=== PATIENT | male | born 1965 | race Caucasian/White ===

== ENCOUNTER 2023-09-03 21:22 | Emergency (ER) | payer MEDICAID ==
[~2023-09-03] VITALS: Ht 182.9 cm; Wt 63.0 kg
[2023-09-03 21:25] VITALS: BP 140/91; PULSE 103; RESP 16; O2SAT 97
[2023-09-03] MEDS ORDERED: ketorolac trometh. 30mg/ml inj. IM ONE (23:35)
[2023-09-03] MEDS ORDERED: LIDO20SO16 PO (23:45)
[2023-09-03] MEDS: LIDOcaine 2% Viscous 15ml cup MM PRN (23:53)
[2023-09-03] MEDS: HYDROcodone/acetaminophen 5mg/325mg tablet PO ONE (23:53)
[2023-09-03] MEDS: ketorolac tromethamine 15mg/ml inj. IM ONE (23:54)
[2023-09-04 00:04] VITALS: TEMP 98
== END 2023-09-04 00:05 | disposition home or self-care (01) ==
LOC: ER 21:23
DX: M27.2 Inflammatory conditions of jaws (principal); Z88.0 Allergy status to penicillin; Z79.899 Other long term (current) drug therapy
CPT/HCPCS: 96372; 99283; J1885

== ENCOUNTER 2024-12-15 14:12 | Emergency (ER) | payer MEDICAID ==
[~2024-12-15] VITALS: Ht 182.9 cm; Wt 48.7 kg
[~2024-12-15 14:12] MED LIST: LIDO20SO16 PO
--- NOTE | 2024-12-15 14:37 | Physician Documentation ---
History of Present Illness ~ Chief Complaint: ETOH Stated Complaint: ETOH Time Seen by MD: 15:49 OK to notify your PCP?: Yes Source: patient Mode of Arrival: POV Exam Limitations: no limitations HPI 58-year-old male presents for alcoholism. He reports that he was at [facility] today and they told him he should come back on Sunday. He states he went through their detox program did not finish. It is unclear what he is requesting from us. He reports he had 3 beers before coming in today. HE IS REQUESTING MEDICAL CLEARANCE SO HE CAN GO BACK TO [facility]. Tetanus within 5 years?: No Medication Reconciliation Allergies: Coded Allergies: Penicillins (Verified Allergy, Severe, 09/03/23) Scheduled Lidocaine Hcl (Xylocaine Viscous), 5 ML PO Q2H PRN SORE THROAT Scheduled PRN Chlordiazepoxide Hcl (Librium), 1 CAP PO TID PRN for alcohol withdrawal Review of Systems All Other Systems at this time: Reviewed and Negative Physical Exam Vital Signs: RN Vital Signs have been reviewed: Yes, Temperature: 97.4, Source: Temporal, Heart Rate: 94, Respiratory Rate: 15, BP: 116/75, Pulse Oximetry: 94, Weight: 48.700 Pulse Oximetry Reflects: adequate oxygenation Physical Exam General: Alert, no distress. HEENT: No injection, moist mucous membranes. Neck: Full range of motion. Respiratory: No respiratory distress, equal chest rise and fall. Chest: No accessory muscle use. Cardiovascular: Regular rate and rhythm. Gastrointestinal: Nondistended. Extremities: Normal range of motion, no deformity. Neurologic: Oriented x4. Psychiatric: Normal mood and affect. Skin: Normal color, warm and dry. Progress Results/Orders Results/Orders Completed Orders - CHASE BUSTILLOS NP Urinalysis, Cult If Indicated (12/15/24 15:57) Cbc/Diff (12/15/24 15:57) BMP (12/15/24 15:57) Lipase (12/15/24 15:57) CMP (12/15/24 15:57) Vital Signs 12/15/24 14:31 Temp 97.4 Pulse 94 Resp 15 B/P (MAP) 116/75 Pulse Ox 94 Laboratory Tests Test 12/15/24 16:17 12/15/24 16:39 White Blood Count 5.1 Red Blood Count 4.36 L Hemoglobin 14.9 Hematocrit 43.6 Mean Corpuscular Volume 100.0 H Mean Corpuscular Hemoglobin 34.1 H Mean Corpuscular Hemoglobin Concent 34.1 Red Cell Distribution Width 14.8 H Platelet Count 169 Mean Platelet Volume 7.0 L Neutrophils (%) (Auto) 47.4 Lymphocytes (%) (Auto) 39.5 Monocytes (%) (Auto) 11.1 Eosinophils (%) (Auto) 1.1 Basophils (%) (Auto) 0.9 Neutrophils # (Auto) 2.4 Lymphocytes # (Auto) 2.0 Monocytes # (Auto) 0.6 Eosinophils # (Auto) 0.1 Basophils # (Auto) 0.0 CBC Comment Sodium Level 141 Potassium Level 3.8 Chloride Level 102 Carbon Dioxide Level 26.7 Anion Gap 12 Blood Urea Nitrogen 4 L Creatinine 0.60 Estimated GFR/1.73 m2 > 90 BUN/Creatinine Ratio 6.7 L Glucose Level 87 Calcium Level 7.7 L Total Bilirubin 0.2 Aspartate Amino Transf (AST/SGOT) 48 H Alanine Aminotransferase (ALT/SGPT) 51 Alkaline Phosphatase 61 Total Protein 7.0 Albumin 3.7 Globulin 3.3 Albumin/Globulin Ratio 1.1 Lipase 82 H Chemistry Comments Urine Specimen Description Urinal Urine Color Yellow Urine Clarity Clear Urine pH 6.0 Urine Specific Avant <=1.005 Urine Protein Negative Urine Glucose (UA) Negative Urine Ketones Negative Urine Occult Blood Negative Urine Nitrite Negative Urine Bilirubin Negative Urine Urobilinogen 0.2 Urine Leukocyte Esterase Negative Urine Culture Indicated Not ind Volume Urine Centrifuged 10 ml Urine Comment Medical Decision Making Findings Since laboratory values were overall unremarkable. I am going to medically clear him and discharge him with the Librium to help with his alcohol recovery Departure Disposition: 01 HOME / SELF CARE / HOMELESS Impression: Primary Impression: Alcoholic intoxication Additional Impression: Alcohol withdrawal syndrome Condition: Stable Discharge Instructions: Alcohol Intoxication Additional Instructions: The patient is medically cleared for alcohol recovery at [place] Referrals: NO PRIMARY CARE PROVIDER (PCP) Prescriptions Chlordiazepoxide Hcl (Librium) 25 Mg Capsule 1 CAP PO TID PRN for alcohol withdrawal for 4 Days, #4 CAP 0 Refills Prov: CHASE BUSTILLOS WORD PROCESSOR OPERATOR 12/15/24 Additional Comment Medical Screen Exam This patient recieved a medical screening examination. After reviewing the individual's medical complaints with presenting symptoms and performing an appropriate physical examination, it was determined that no immediate life- threatening emergency medical condition is present. This individual is also not a women having contractions. Signature Scribe Signature: T Attestation: Scribed for Chase Bustillos Np by Chase John NP . 12/15/24 16:45 SOREN MARTINEZP Dec 15, 2024 14:37 CHASE BUSTILLOS NP Dec 15, 2024 16:46
[2024-12-15 16:51] LABS: BASOPHILS % (AUTO) 0.9 % (0-1); EOSINOPHILS # (AUTO) 0.1 X10'3 (0-0.9); EOSINOPHILS % (AUTO) 1.1 % (0-6); HEMATOCRIT 43.6 % (42.0-52.0); HEMOGLOBIN 14.9 g/dl (14.0-17.9); LYMPHOCYTES % (AUTO) 39.5 % (21-51); MEAN CORPUSCULAR HEMOGLOBIN 34.1 PG (27.0-31.0); MEAN CORPUSCULAR HGB CONC 34.1 g/dL (33.0-36.5); MONOCYTES # (AUTO) 0.6 X10'3 (0-0.9); MONOCYTES % (AUTO) 11.1 % (2-12); NEUTROPHILS # (AUTO) 2.4 X10'3 (1.8-7.7); NEUTROPHILS % (AUTO) 47.4 % (42-75); PLATELET COUNT 169 X10'3 (140-440); RED BLOOD COUNT 4.36 X10'6 (4.70-6.10); RED CELL DISTRIBUTION WIDTH 14.8 % (11.5-14.5); WHITE BLOOD COUNT 5.1 X10'3 (4.5-11.0)
[2024-12-15 16:57] LABS: BILIRUBIN,URINE NEGATIVE (Neg); CLARITY,URINE CLEAR (Clear); COLOR,URINE YELLOW (Yellow); GLUCOSE, URINE NEGATIVE (Neg); KETONES,URINE NEGATIVE (Neg); LEUKOCYTE ESTERASE ,URINE NEGATIVE (Neg); NITRITES, URINE NEGATIVE (Neg); OCCULT BLOOD,URINE NEGATIVE (Neg); PROTEIN,URINE NEGATIVE (Neg); UROBILINOGEN,URINE 0.2 E.U/dL (0.2-1.0)
[2024-12-15 17:02] LABS: UA COLLECTION TYPE URINAL
[2024-12-15 17:10] LABS: ALANINE AMINOTRANSFERASE 51 U/L (12-78); ALBUMIN 3.7 G/DL (3.4-5.0); ALBUMIN/GLOBULIN RATIO 1.1 (1.1-1.5); ALKALINE PHOSPHATASE 61 IU/L (46-116); ANION GAP 12 (8-16); ASPARTATE AMINO TRANSFERASE 48 U/L (10-37); BILIRUBIN,TOTAL 0.2 MG/DL (0.1-1.0); BLOOD UREA NITROGEN 4 MG/DL (7-18); BUN/CREATININE RATIO 6.7 (10.0-20.0); CALCIUM 7.7 MG/DL (8.5-10.1); CHLORIDE 102 MMOL/L (99-107); GLUCOSE 87 MG/DL (70-104); LIPASE 82 U/L (16-77); POTASSIUM 3.8 MMOL/L (3.5-5.1); SODIUM 141 MMOL/L (135-145); TOTAL CARBON DIOXIDE 26.7 MMOL/L (24-32); eCRCL 92 ML/MIN; eGFR > 90 ML/MIN
[2024-12-15] MEDS ORDERED: CHLO25CA10 PO (17:15)
[2024-12-15 17:26] VITALS: BP 139/97; PULSE 103; RESP 16; TEMP 98; O2SAT 100
== END 2024-12-15 17:27 | disposition home or self-care (01) ==
LOC: ER 14:13
DX: F10.239 Alcohol dependence with withdrawal, unspecified (principal); F10.229 Alcohol dependence with intoxication, unspecified; Z88.0 Allergy status to penicillin; Y90.9 Presence of alcohol in blood, level not specified
CPT/HCPCS: 36415; 80053; 81003; 83690; 85025; 99284

== ENCOUNTER 2024-12-28 18:05 | Emergency (ER) | payer MEDICAID ==
[~2024-12-28] VITALS: Ht 177.8 cm; Wt 60.0 kg
[~2024-12-28 18:05] MED LIST changes: +CHLO25CA10 PO
--- NOTE | 2024-12-28 18:34 | Physician Documentation ---
History of Present Illness ~ Chief Complaint: ETOH Stated Complaint: ALOC Time Seen by MD: 18:15 Source: EMS notes reviewed Mode of Arrival: EMS Exam Limitations: intoxication HPI 59-year-old male brought in by EMS for intoxication found by bystanders and a drive way of a business a [place] slurred speech inappropriate words admits to drinking today but follows commands. Patient states he drinks daily. Tetanus within 5 years?: No Medication Reconciliation Allergies: Coded Allergies: Penicillins (Verified Allergy, Severe, 09/03/23) Scheduled Lidocaine Hcl (Xylocaine Viscous), 5 ML PO Q2H PRN SORE THROAT Scheduled PRN Chlordiazepoxide Hcl (Librium), 1 CAP PO TID PRN for alcohol withdrawal Review of Systems All Other Systems at this time: Reviewed and Negative Physical Exam Vital Signs: Heart Rate: 97, Respiratory Rate: 20, BP: 135/88, Pulse Oximetry: 95, Weight: 60.000 Physical Exam General: Intoxicated disheveled no apparent distress. HEENT: PERRL, EOMI, no injection, moist mucous membranes. Atraumatic Neck: Full range of motion. Nontender Respiratory: Lungs clear, no respiratory distress. Chest: No accessory muscle use. Cardiovascular: Regular rate and rhythm, no murmurs. Gastrointestinal: Soft, nontender, nondistended. Bowels sounds present. Extremities: Normal range of motion, no deformity. Neurologic: Intoxicated Skin: Normal color, warm and dry. No edema, no ecchymosis. Progress Results/Orders Results/Orders Orders - ROSA YUSUF HAND TURNER Ct Head (12/28/24 18:25) Po Challenge (12/28/24 ) Completed Orders - ROSA YUSUF HAND TURNER Cbc/Diff (12/28/24 18:25) Ct Head (12/28/24 18:25) Ethanol (12/28/24 18:25) Drug Screen, Urine (12/28/24 18:25) Normal Saline 1000ml (0.9% Sodium Chlori (12/28/24 18:25) BMP (12/28/24 18:25) Man Diff (12/28/24 18:39) Normal Saline 1000ml (0.9% Sodium Chlori (12/28/24 19:20) Potassium Cl Sr Tablet (K-Dur Tablet) (12/28/24 19:20) Medications Received in ER Medications (Trade) Dose Ordered Sig/Taye Route PRN Reason Start Time Stop Time Status Last Admin Dose Admin (0.9% sodium chloride (NS) 1000ml IV soln) 1,000 ml ONCE ONCE IVB 12/28/24 18:25 12/28/24 18:27 DC 12/28/24 19:03 1,000 ML (0.9% sodium chloride (NS) 1000ml IV soln) 1,000 ml ONCE ONCE IVB 12/28/24 19:20 12/28/24 19:21 DC 12/28/24 19:28 1,000 ML (K-DUR tablet) 40 meq ONCE ONCE PO 12/28/24 19:20 12/28/24 19:21 DC 12/28/24 19:26 40 MEQ Vital Signs 12/28/24 12/28/24 18:09 19:42 Pulse 97 99 Resp 20 19 B/P (MAP) 135/88 135/84 (101) Pulse Ox 95 100 Laboratory Tests Test 12/28/24 18:16 12/28/24 18:39 Urine Opiates Screen Negative Urine Methadone Screen Negative Urine Fentanyl Screen Negative Urine Barbiturates Screen Negative Urine Phencyclidine Screen Negative Urine Amphetamines Screen Negative Urine Benzodiazepines Screen Negative Urine Cocaine Screen Negative Urine Cannabinoids Screen Negative Drug Screen Comment White Blood Count 6.2 Red Blood Count 4.30 L Hemoglobin 15.0 Hematocrit 43.7 Mean Corpuscular Volume 101.7 H Mean Corpuscular Hemoglobin 35.0 H Mean Corpuscular Hemoglobin Concent 34.4 Red Cell Distribution Width 15.1 H Platelet Count 143 Mean Platelet Volume 7.5 Neutrophils (%) (Auto) 48.8 Lymphocytes (%) (Auto) 33.3 Monocytes (%) (Auto) 15.6 H Eosinophils (%) (Auto) 1.3 Basophils (%) (Auto) 1.0 Neutrophils # (Auto) 3.0 Lymphocytes # (Auto) 2.1 Monocytes # (Auto) 1.0 H Eosinophils # (Auto) 0.1 Basophils # (Auto) 0.1 CBC Comment Differential Total Cells Counted 100 Neutrophils % (Manual) 61.0 Band Neutrophils % 1.0 Lymphocytes % (Manual) 27.0 Monocytes % (Manual) 10.0 Eosinophils % (Manual) 1.0 Platelet Estimate Normal Red Blood Cell Morphology Perf Basophilic Stippling Anisocytosis 1+ Macrocytosis 1+ Sodium Level 142 Potassium Level 3.4 L Chloride Level 108 H Carbon Dioxide Level 25.3 Anion Gap 9 Blood Urea Nitrogen 3 L Creatinine 0.55 L Estimated GFR/1.73 m2 > 90 BUN/Creatinine Ratio 5.5 L Glucose Level 101 Calcium Level 8.0 L Albumin 3.6 Chemistry Comments Ethyl Alcohol Level 466 *H EKG/XRAY/CT/US/VASC/MRI CT : Impression EXAM: CT CT HEAD INDICATION: aloc/etoh TECHNIQUE: CT of the head without intravenous contrast. Radiation Dose Information: CT Dose: CTDI volume is 55.29 mGy. Dose-length product is 1015.66 mGy*cm The dose indicators for CT are the volume Computed Tomography (CT) Dose Index (CTDIvol) and the Dose Length Product (DLP), and are measured in units of mGy and mGy-cm, respectively. These indicators are not patient dose, but values generated from the CT scanner acquisition factors. The report includes radiation exposure data for exposures received during this examination. COMPARISON: None FINDINGS: The cerebral parenchyma appears to be normal configuration and attenuation. The ventricles, cisterns, and sulci appear age-appropriate. There is no evidence for acute territorial infarct, hemorrhage, or mass effect. The orbits are normal. There are postsurgical changes of the sinuses. There is moderate mucosal thickening within the left maxillary antrum.. The soft tissues and osseous structures appear within normal limits. IMPRESSION: 1. No acute territorial infarct, intracranial hemorrhage, or mass effect. If clinical symptoms persist, MRI may be beneficial in further evaluation. Medical Decision Making Findings 59-year-old male found by bystanders laying in the driveway of business obviously intoxicated due to the heat as well as intoxication CT of head labs ordered. Evaluate for stroke-like symptoms, head injury, electrolyte abnormality or heat exhaustion CT negative for any acute abnormalities. Ethanol levels over 400. Patient has received 2 L of normal saline is able to eat and drink and ambulate. is available fruit picker. Labs and vital signs are unremarkable patient discharged home Departure Time of Disposition: 20:04 Disposition: 01 HOME / SELF CARE / HOMELESS Impression: Primary Impression: Alcoholic intoxication Condition: Stable Discharge Instructions: Alcohol Intoxication Referrals: NO PRIMARY CARE PROVIDER (PCP) Education Educated: Patient Educated regarding: diagnosis, treatment, need for follow up Signature Scribe Signature: No scribe Attestation: The note accurately reflects work and decisions made by me.Rosa WOOTEN 12/28/24 18:33 ROSA YUSUF NP Dec 28, 2024 18:34
[2024-12-28 18:47] LABS: MEAN PLATELET VOLUME 7.5 FL (7.4-10.4); RED CELL DISTRIBUTION WIDTH 15.1 % (11.5-14.5)
[2024-12-28 18:51] LABS: URINE AMPHETAMINE SCREEN NEGATIVE (Neg); URINE BARBITUATE SCREEN NEGATIVE (Neg); URINE BENZODIAZEPINES SCREEN NEGATIVE (Neg); URINE CANNABINOID SCREEN NEGATIVE (Neg); URINE COCAINE SCREEN NEGATIVE (Neg); URINE METHADONE SCREEN NEGATIVE (Neg); URINE OPIATE SCREEN NEGATIVE (Neg); URINE PHENCYCLIDINE SCREEN NEGATIVE (Neg)
[2024-12-28] MEDS: normal saline 1000ML IV soln IVB ONE ×2 (19:03→19:28)
--- NOTE | 2024-12-28 19:04 | RADIOLOGY REPORT ---
EXAM: CT CT HEAD INDICATION: aloc/etoh TECHNIQUE: CT of the head without intravenous contrast. Radiation Dose Information: CT Dose: CTDI volume is 55.29 mGy. Dose-length product is 1015.66 mGy*cm The dose indicators for CT are the volume Computed Tomography (CT) Dose Index (CTDIvol) and the Dose Length Product (DLP), and are measured in units of mGy and mGy-cm, respectively. These indicators are not patient dose, but values generated from the CT scanner acquisition factors. The report includes radiation exposure data for exposures received during this examination. COMPARISON: None FINDINGS: The cerebral parenchyma appears to be normal configuration and attenuation. The ventricles, cisterns , and sulci appear age-appropriate. There is no evidence for acute territorial infarct, hemorrhage, or mass effect. The orbits are normal. There are postsurgical changes of the sinuses. There is moderate mucosal thi ckening within the left maxillary antrum.. The soft tissues and osseous structures appear within nor mal limits. IMPRESSION: 1. No acute territorial infarct, intracranial hemorrhage, or mass effect. If clinical symptoms persis t, MRI may be beneficial in further evaluation.
[2024-12-28 19:05] LABS: CREATININE 0.55 MG/DL (0.60-1.10); TOTAL CARBON DIOXIDE 25.3 MMOL/L (24-32)
[2024-12-28 19:06] LABS: eCRCL 123 ML/MIN; eGFR > 90 ML/MIN
[2024-12-28 19:15] LABS: ETHANOL 466 MG/DL (<10)
[2024-12-28] MEDS: potassium Cl 20 mEq SR tablet PO ONE (19:26)
[2024-12-28 19:37] LABS: BANDS% (MANUAL) 1.0 % (0-10); EOSINOPHILS % (MANUAL) 1.0 % (0-6); LYMPHOCYTES % (MANUAL) 27.0 % (21-51); MONOCYTES % (MANUAL) 10.0 % (2-12); NEUTROPHILS % (MANUAL) 61.0 % (42-75)
[2024-12-28 19:38] LABS: PLATELET ESTIMATE NORMAL
[2024-12-28 20:21] VITALS: BP 134/87; PULSE 97; RESP 17; TEMP 98; O2SAT 100
== END 2024-12-28 20:24 | disposition home or self-care (01) ==
LOC: ER 18:06
DX: F10.129 Alcohol abuse with intoxication, unspecified (principal); R47.81 Slurred speech; Z88.0 Allergy status to penicillin; Z79.899 Other long term (current) drug therapy; Y90.9 Presence of alcohol in blood, level not specified
CPT/HCPCS: 70450; 80048; 80305; 80320; 85007; 85025; 96360; 99284; J7030

== ENCOUNTER 2025-01-02 14:21 | Emergency (ER) | payer MEDICAID ==
[~2025-01-02] VITALS: Ht 182.9 cm; Wt 57.8 kg
[2025-01-02 14:23] VITALS: BP 194/113; PULSE 121; RESP 16; TEMP 97.8; O2SAT 97
--- NOTE | 2025-01-02 14:31 | Physician Documentation ---
HPI ~ General Chief Complaint: Medication Request Stated Complaint: MED REQUEST Time Seen by MD: 14:26 History of Present Illness HPI Comments Presents to the emergency department for re-evaluation of a detox plan he was placed on Librium x4 days. Mg seem to help today's presenting for a refill of that medication for a few more days as he is still exhibiting exhibiting signifi cant symptoms from detox biggest complaint is shaking reports that he has had significant diarrhea but he is staying hydrated. Medication Reconciliation Allergies: Coded Allergies: Penicillins (Verified Allergy, Severe, 09/03/23) Scheduled Lidocaine Hcl (Xylocaine Viscous), 5 ML PO Q2H PRN SORE THROAT Scheduled PRN Chlordiazepoxide Hcl (Librium), 1 CAP PO TID PRN for alcohol withdrawal Physical Exam Physical Exam Vital Signs: Temperature: 97.8, Source: Temporal, Heart Rate: 121, Respiratory Rate: 16, BP: 194/113, Pulse Oximetry: 97, Weight: 57.750 Progress Results/Orders Results/Orders Vital Signs 01/02/25 14:23 Temp 97.8 Pulse 121 Resp 16 B/P (MAP) 194/113 Pulse Ox 97 Departure Referrals: NO PRIMARY CARE PROVIDER (PCP) PARAG SEGURA BLANCHING MACHINE OPERATOR Jan 02, 2025 14:31
--- NOTE | 2025-01-02 14:37 | Physician Documentation ---
HPI ~ General Chief Complaint: Medication Request Stated Complaint: MED REQUEST Time Seen by MD: 14:26 History of Present Illness HPI Comments 59-year-old male presents to the emergency department for re-evaluation of detoxing from alcohol placed on Librium x4 days but he is currently out. Reports that he is still experiencing anxiety and tachycardia associated withdrawal but he does feel like the Librium and helping fasting that we extend the prescription for an additional 4 days. Patient reports that he has had multiple episodes of diarrhea but he is staying hydrated at this time. Medication Reconciliation Allergies: Coded Allergies: Penicillins (Verified Allergy, Severe, 09/03/23) Scheduled Lidocaine Hcl (Xylocaine Viscous), 5 ML PO Q2H PRN SORE THROAT Scheduled PRN Chlordiazepoxide Hcl (Librium), 1 CAP PO TID PRN for alcohol withdrawal Review of Systems All Other Systems at this time: Reviewed and Negative ROS As stated above in the HPI, otherwise all systems are reviewed and negative. Physical Exam Physical Exam Vital Signs: Temperature: 97.8, Source: Temporal, Heart Rate: 121, Respiratory Rate: 16, BP: 194/113, Pulse Oximetry: 97, Weight: 57.750 Physical Exam VITALS: Reviewed and as above. GENERAL: Alert, no apparent distress, mild anxiety HEENT: Normocephalic, atraumatic, PERRL, EOMI, dry mucosa, no erythema RESPIRATORY: Lungs clear, normal breath sounds, no respiratory distress. CHEST: No accessory muscle use, no retractions CV: Tachycardic regular rhythm. no edema, no murmur, No: JVD GI: Soft, non-tender, bowels sounds present, no rebound, guarding, or rigidity BACK: No CVA tenderness, or swelling MUSCULOSKELETAL No deformities, no edema SKIN: Warm and dry, no rash NEURO: Oriented x4, No motor or sensory deficit PSYCH: Normal mood and affect, no agitation Progress Results/Orders Results/Orders Vital Signs 01/02/25 14:23 Temp 97.8 Pulse 121 Resp 16 B/P (MAP) 194/113 Pulse Ox 97 Medical Decision Making Findings Patient presents in alcohol withdrawal last drink was 4 days ago. Patient tachycardic with tremors. Patient denies any tactile, it auditor or visual hallucinations, AAOx3_. Patient denies any history of withdrawal seizures at this time. Reports that his withdrawal phase last about 70s he is currently 4 days into that withdrawal. Previous he prescribed Librium telephone during this course of withdrawal. We are going to prescribe the patient an additional 4 days of Librium and re-evaluate. Departure Disposition: HOME / SELF CARE / HOMELESS Impression: Primary Impression: Alcohol withdrawal syndrome Condition: Stable Additional Instructions: Please take the Librium 25 mg per day as instructed. Please continues to drink plenty of liquid including Gatorade. Imodium is helpful if you continue to have episodes of diarrhea. Primary care provider if you have 1. If you do not have a primary care provider please return to the emergency department if you have any worsening of symptoms or any additional concerning symptoms at all or associated with your withdrawal phase. Referrals: NO PRIMARY CARE PROVIDER (PCP) Prescriptions Chlordiazepoxide Hcl (Librium) 25 Mg Capsule 25 MG PO DIRECTED for 4 Days, #4 CAP 0 Refills Prov: ELIF SEGURA 01/02/25 Education Educated: Patient Educated regarding: diagnosis, treatment, prognosis, need for follow up Signature Scribe Signature: . Attestation: Scribed for Elif Segura by SUGAR Bosch . 01/02/25 14:42 ELIF SEGURA Jan 02, 2025 14:37
[2025-01-02] MEDS ORDERED: CHLO25CA10 PO (14:41)
== END 2025-01-02 14:45 | disposition home or self-care (01) ==
LOC: ER 14:22
DX: F41.9 Anxiety disorder, unspecified (principal); F10.232 Alcohol dependence with withdrawal with perceptual disturbance; Z76.0 Encounter for issue of repeat prescription; Z88.0 Allergy status to penicillin; Y90.8 Blood alcohol level of 240 mg/100 ml or more
CPT/HCPCS: 99281; 99282

== ENCOUNTER 2025-03-24 11:20 | Inpatient (IN) | payer MEDICAID ==
[~2025-03-24] VITALS: Ht 182.9 cm; Wt 57.6 kg
--- NOTE | 2025-03-24 11:49 | ELECTROCARDIOGRAPH REPORT ---
[facility] Test Date: 2025-03-24 Test Time: 11:48:01 Pat Name: FAREED BABCOCK Department: EMERGENCY ROOM Room: Gender: M Supervisor Molding: CROW : 1965 Requested By: MATTHEW MOSER Order Number: [id number] Reading MD: Measurements Intervals [place] Rate: 119 P: 88 VT: 128 QRS: 76 QRSD: 102 T: 75 QT: 328 QTc: 462 Interpretive Statements Sinus tachycardia Atrial premature complex RSR' in V1 or V2, probably normal variant Please click the below link to view image of tracing.
[2025-03-24 11:57] LABS: MEAN PLATELET VOLUME 7.5 FL (7.4-10.4); RED CELL DISTRIBUTION WIDTH 12.9 % (11.5-14.5)
--- NOTE | 2025-03-24 12:07 | RADIOLOGY REPORT ---
CHEST RADIOGRAPH Indication: CP Technique: Single frontal view of the chest was obtained COMPARISON: None FINDINGS: Lines and Tubes: None Lungs: Clear Pleura: No effusion. No pneumothorax. Cardiomediastinal contours: Unremarkable Bones: Unremarkable IMPRESSION: No acute disease.
[2025-03-24 12:20] LABS: CREATININE 0.56 MG/DL (0.60-1.10); PRO BRAIN NATRIURETIC PEPTIDE 229 PG/ML (0-125); TOTAL CARBON DIOXIDE 30.1 MMOL/L (24-32); eCRCL 116 ML/MIN; eGFR > 90 ML/MIN
[2025-03-24 12:37] LABS: LYMPHOCYTES % (MANUAL) 13.0 % (21-51); NEUTROPHILS % (MANUAL) 68.0 % (42-75)
[2025-03-24 12:38] LABS: LARGE PLATELETS FEW; MONOCYTES % (MANUAL) 19.0 % (2-12); PLATELET ESTIMATE NORMAL
--- NOTE | 2025-03-24 14:33 | Physician Documentation ---
History of Present Illness ~ Chief Complaint: Shortness of Breath Stated Complaint: FLANK PAIN Time Seen by MD: 14:17 Mode of Arrival: POV HPI This is a 59-year-old male who presents with three days of shortness of breath and right-sided chest pain that radiates to right shoulder and neck worse when coughing, patient reports that he is an every day smoker with 40 pack years, pat ient reports chronic cough though cough worse over the last three days, reports additionally watery eyes and runny nose patient reports his girlfriend has similar symptoms. Patient reports shortness of breath worse with lying flat, patient reports cold sweats without fever. Patient reports no cardiac history and no diagnosis of COPD. Medication Reconciliation Allergies: Coded Allergies: Penicillins (Verified Allergy, Severe, 09/03/23) Scheduled Chlordiazepoxide Hcl (Librium), 25 MG PO DIRECTED Lidocaine Hcl (Xylocaine Viscous), 5 ML PO Q2H PRN SORE THROAT Scheduled PRN Chlordiazepoxide Hcl (Librium), 1 CAP PO TID PRN for alcohol withdrawal Past Medical History Past Medical History: No Pertinent History Smoking Status: Current every day smoker Alcohol Use: Heavy Review of Systems ROS As stated above in the HPI, otherwise all systems are reviewed and negative. Physical Exam Vital Signs: Temperature: 97.5, Source: Temporal, Heart Rate: 103, Respiratory Rate: 18, BP: 121/87, Pulse Oximetry: 93, Weight: 57.600 Oxygen Flow Rate: 0 Physical Exam VITALS: Reviewed and as above. GENERAL: Alert, nontoxic appearing, no apparent distress. RESPIRATORY: No increased work of breathing, no respiratory distress, speaking in full clear sentences, scattered wheezes throughout greatest in right middle and lower [place] CV: Regular rate and rhythm no murmur Progress Progress Note 1924: I spoke with hospitalist resident Dr. Cordero who kindly accepts patient for admission Results/Orders Results/Orders Orders - CLEMENCIA CONTRERAS Covid19 Binax Poc Result Entry (03/24/25 14:26) Svn Treatment (03/24/25 15:22) Cta Chest Pe (03/24/25 17:00) Culture Blood (03/24/25 18:34) Page Hospitalist (03/24/25 18:34) Fill Out Med Reconciliation (03/24/25 18:34) Completed Orders - BEN,CLEMENCIA W SHOULDER JOINER Influenza Type A&B Rapid Test (03/24/25 13:38) Ipratropium/Albuterol Nebule (Ipratrop/A (03/24/25 15:25) D-Dimer (03/24/25 15:22) Cta Chest Pe (03/24/25 17:00) Iohexol 350mg/Ml 100ml (Omnipaque 350mg/ (03/24/25 16:52) PBNP (03/24/25 18:34) Lacticsepsis (03/24/25 18:34) Ceftriaxone/N0u-Xmxbfymr 1gm (Rocephin 1 (03/24/25 18:35) Azithromycin/Ns 500mg/250ml (Zithromax/N (03/24/25 18:35) Nicotine 21mg Patch -24hr (Habitrol Patc (03/24/25 18:50) Normal Saline 1000ml (0.9% Sodium Chlori (03/24/25 19:30) Lactic,2hr (03/24/25 20:17) Vital Signs 03/24/25 03/24/25 03/24/25 03/24/25 11:29 12:50 13:13 13:45 Temp 97.5 Pulse 103 111 112 Resp 18 20 27 B/P (MAP) 121/87 143/88 (106) 153/88 (109) Pulse Ox 93 94 90 O2 Flow Rate 0 0 0 03/24/25 03/24/25 03/24/25 03/24/25 14:38 15:51 15:57 16:13 Pulse 120 118 126 118 Resp 20 16 16 16 B/P (MAP) 123/74 (90) 137/79 (98) Pulse Ox 90 90 96 90 O2 Delivery Room Air* Room Air* O2 Flow Rate 0 0 0 0 FiO2 21 21 03/24/25 03/24/25 03/24/25 17:33 17:35 19:35 Temp 98.6 Pulse 112 104 Resp 22 20 B/P (MAP) 161/91 (114) 148/84 (105) Pulse Ox 92 92 O2 Delivery Nasal Cannula* O2 Flow Rate 2.0 2 FiO2 28 Laboratory Tests Test 03/24/25 11:45 03/24/25 13:23 03/24/25 13:38 03/24/25 13:50 White Blood Count 8.9 Red Blood Count 4.09 L Hemoglobin 14.7 Hematocrit 42.5 Mean Corpuscular Volume 104.0 H Mean Corpuscular Hemoglobin 35.8 H Mean Corpuscular Hemoglobin Concent 34.5 Red Cell Distribution Width 12.9 Platelet Count 199 Mean Platelet Volume 7.5 Neutrophils (%) (Auto) 64.6 Lymphocytes (%) (Auto) 12.7 L Monocytes (%) (Auto) 22.3 H Eosinophils (%) (Auto) 0 Basophils (%) (Auto) 0.4 Neutrophils # (Auto) 5.8 Lymphocytes # (Auto) 1.1 Monocytes # (Auto) 2.0 H Eosinophils # (Auto) 0.0 Basophils # (Auto) 0.0 CBC Comment Differential Total Cells Counted 100 Neutrophils % (Manual) 68.0 Lymphocytes % (Manual) 13.0 L Monocytes % (Manual) 19.0 H Platelet Estimate Normal Large Platelets Few Red Blood Cell Morphology Perf Basophilic Stippling Macrocytosis 1+ D-Dimer 3.31 H D-Dimer Comment Sodium Level 132 L Potassium Level 3.7 Chloride Level 94 L Carbon Dioxide Level 30.1 Anion Gap 8 Blood Urea Nitrogen 2 L Creatinine 0.56 L Estimated GFR/1.73 m2 > 90 BUN/Creatinine Ratio 3.6 L Glucose Level 126 H Hemoglobin A1c 5.4 Lactic Acid Level 2.1 H Calcium Level 8.9 Troponin I High Sensitivity 8 8 Pro-B-Type Natriuretic Peptide 229 H Albumin 3.1 L Chemistry Comments Troponin I High Sens Percent Delta 0 Troponin I Hi Sens Absolute Change 0 Influenza Type A Antigen Negative Influenza Type B Antigen Negative Urine Specimen Description Cln catch midstream Urine Color Yellow Urine Clarity Clear Urine pH 6.5 Urine Specific [place] <=1.005 Urine Protein Trace Urine Glucose (UA) Negative Urine Ketones Trace H Urine Occult Blood Negative Urine Nitrite Negative Urine Bilirubin Negative Urine Urobilinogen 1.0 Urine Leukocyte Esterase Negative Urine RBC None seen Urine WBC None seen Urine Squamous Epithelial Cells None seen Urine Bacteria Few Urine Culture Indicated Not ind Volume Urine Centrifuged 10 ml Urine Comment Urine Opiates Screen Negative Urine Methadone Screen Negative Urine Fentanyl Screen Negative Urine Barbiturates Screen Negative Urine Phencyclidine Screen Negative Urine Amphetamines Screen Negative Urine Benzodiazepines Screen Negative Urine Cocaine Screen Negative Urine Cannabinoids Screen Negative Drug Screen Comment Test 03/24/25 15:20 03/24/25 19:01 SARS-CoV-2 Antigen (Rapid) Negative Pro-B-Type Natriuretic Peptide 285 H Microbiology Date/Time Source Procedure Growth Status 03/24/25 19:01 Blood Arm Right Blood Culture - Preliminary NEGATIVE (LESS THAN 24 HOURS) Resulted EKG/XRAY/CT/US/VASC/MRI EKG : Additional Comment EKG at 11:48 a.m. interpreted by myself as sinus tachycardia at a rate of 119, normal axis, no ST segment elevation or depression Chest X-Ray : Additional Comments Exam: CHEST,SINGLE VIEW CHEST RADIOGRAPH Indication: CP Technique: Single frontal view of the chest was obtained COMPARISON: None FINDINGS: Lines and Tubes: None Lungs: Clear Pleura: No effusion. No pneumothorax. Cardiomediastinal contours: Unremarkable Bones: Unremarkable IMPRESSION: No acute disease. Electronically Signed by:GLYNN RAMESH MD Date & Time: 03/24/25 120 Dictated by: GLYNN RAMESH MD Dictation date and time: 03/24/25 1155 I have reviewed and agree with the radiology report. I have reviewed and interpreted the imaging as: No focal consolidation or pneumothorax CT : Impression Exam: CTA CHEST PE EXAM: CT CTA CHEST PE W/ IV CONTRAST HISTORY: SOB/CP TECHNIQUE: CT angiogram was performed. CT scans at this facility use dose modulation, iterative reconstruction, and/or weight based dosing when appropriate to reduce radiation dose to as low as reasonably achievable. Coronal and sagittal reformations and maximum intensity projection images were created from the transaxial source data by the senior cytotechnologist and workstation, as well as 3-D volume rendered images with MIPs. COMPARISON: None FINDINGS: [LOWER NECK]: Unremarkable [LYMPH NODES/MEDIASTINUM]: No abnormal lymph nodes by CT size criteria [CARDIOVASCULAR]: Normal cardiac size. No pericardial effusion. No aneurysmal dilatation of the great vessels. Coronary artery calcifications. [PULMONARY ARTERIES]: No pulmonary arterial filling defect. Normal caliber of the main pulmonary artery. No evidence of elevated right heart pressures. [UPPER ABDOMEN]: Unremarkable. [MUSCULOSKELETAL]: No acute fracture or aggressive focal osseous lesion. Multilevel degenerative change of the visualized spine. [CHEST WALL]: Unremarkable. [LUNG PARENCHYMA/PLEURAL SPACE]: Inconspicuous centrilobular and paraseptal nodules with peribronchial thickening and areas of endobronchial impaction most conspicuous in the right lower lobe, right middle lobe, posterior aspect of the right upper lobe and imaging findings likely compatible with infectious bronchiolitis area of partial collapse and/or consolidation in the periphery of the right lung base. Small right-sided pleural effusion. IMPRESSION: 1. No CTA evidence of an acute pulmonary embolism. 2. Infectious bronchiolitis with areas of endobronchial impaction and partial collapse and/or consolidation in the periphery of the right lung base. Electronically Signed by:HELADIO ROBERTSON MD Date & Time: 03/24/251728 Dictated by: HELADIO ROBERTSON MD Dictation date and time: 03/24/251728 I have reviewed and agree with the radiology report. I have reviewed and interpreted the imaging as: No pneumothorax Heart Score: Heart Score Response (Comments) Value History Slightly Suspicious 0 EKG Normal 0 Age 45-64 1 Risk Factors 1 or 2 risk factors 1 Troponin Normal limit 0 Total 2 Medical Decision Making Findings Concern for pulmonary embolism due to shortness breath tachycardia and SpO2 90% on room air, additionally patient reported recent inactivity making for increased PERC score with D-dimer indicated, D-dimer was elevated and CTA obtained, CTA was negative for DVT however demonstrated evidence of infectious bronchiolitis. Given patient's requirement for supplemental oxygen to maintain SpO2 above 94% and findings suggest of pneumonia on chest CT, patient will require admission for IV antibiotics to treat suspected community-acquired pneumonia and further evaluation and monitoring inpatient. Differential Dx:Considerations: Include: anxiety, asthma, bronchitis, cardiogenic shock, CHF, COPD, dysrhythmia, hyperventilation, myocardial infarction, panic attack, pneumonia, pneumonitis, pneumothorax, pulmonary embolism, respiratory distress, respiratory failure, sinusitis, upper resp. infection, other (COVID-19, Influenza) Departure Disposition: ADMITTED INPATIENT Admitted to Inpatient Unit: to hospitalist Impression: Primary Impression: Pneumonia Qualified Codes: J18.9 - Pneumonia, unspecified organism Additional Impression: Hyponatremia Condition: Guarded Referrals: NO PRIMARY CARE PROVIDER (PCP) Education Educated: Patient, Family Educated regarding: diagnosis, treatment, prognosis Signature Scribe Signature: No scribe Attestation: The note accurately reflects work and decisions made by me.SUGAR Conner 03/25/25 00:38 CLEMENCIA CONTRERAS Mar 24, 2025 14:33
[2025-03-24 15:05] LABS: INFLUENZA TYPE A ANTIGEN RAPID NEGATIVE (Negative); INFLUENZA TYPE B ANTIGEN RAPID NEGATIVE (Negative)
[2025-03-24] MEDS: ipratropium/albuterol 3ml nebule NEB ONE (15:50)
[2025-03-24 15:51] VITALS: PULSE 118; RESP 16; O2SAT 90
[2025-03-24 15:57] VITALS: PULSE 126; RESP 16; O2SAT 96
--- NOTE | 2025-03-24 17:31 | RADIOLOGY REPORT ---
EXAM: CT CTA CHEST PE W/ IV CONTRAST HISTORY: SOB/CP TECHNIQUE: CT angiogram was performed. CT scans at this facility use dose modulation, iterative reconstruction, and/or weight based dosing when appropriate to reduce radiation dose to as low as reasonably achievable. Coronal and sagittal reformations and maximum intensity projection images were created from the transaxial source data by the senior cytotechnologist and workstation, as well as 3-D volume rendered images with MIPs. COMPARISON: None FINDINGS: [LOWER NECK]: Unremarkable [LYMPH NODES/MEDIASTINUM]: No abnormal lymph nodes by CT size criteria [CARDIOVASCULAR]: Normal cardiac size. No pericardial effusion. No aneurysmal dilatation of the great vessels. Coronary artery calcifications. [PULMONARY ARTERIES]: No pulmonary arterial filling defect. Normal caliber of the main pulmonary artery. No evidence of elevated right heart pressures. [UPPER ABDOMEN]: Unremarkable. [MUSCULOSKELETAL]: No acute fracture or aggressive focal osseous lesion. Multilevel degenerative change of the visualized spine. [CHEST WALL]: Unremarkable. [LUNG PARENCHYMA/PLEURAL SPACE]: Inconspicuous centrilobular and paraseptal nodules with peribronchial thickening and areas of endobronchial impaction most conspicuous in the right lower lobe, right middle lobe, posterior aspect of the right upper lobe and imaging findings likely compatible with infectious bronchiolitis area of partial collapse and/or consolidation in the periphery of the right lung base. Small right-sided pleural effusion. IMPRESSION: 1. No CTA evidence of an acute pulmonary embolism. 2. Infectious bronchiolitis with areas of endobronchial impaction and partial collapse and/or consolidation in the periphery of the right lung base.
[2025-03-24] MEDS: nicotine 21mg patch - 24 hr TD ONE (19:02)
[2025-03-24] MEDS: CefTRIAXone/D5W-Rocephin 1gm 50 ML IV ONE (19:03)
[2025-03-24] MEDS: normal saline 1000ML IV soln IVB ONE (20:27)
[2025-03-24] MEDS: azithromycin/NS 500mg/250ml 250 ML IV ONE (20:27)
[2025-03-24] MEDS ORDERED: mag hydrox/Alum hydrox/simeth 30ml oral suspension PO PRN ×2 (20:30)
[2025-03-24] MEDS ORDERED: magnesium hydroxide 30ml (MOM) UD suspension PO PRN (20:30)
[2025-03-24] MEDS ORDERED: magnesium Cl slow-release 64mg tablet PO PRN (20:30)
[2025-03-24] MEDS ORDERED: magnesium sulf-water 4G/100mL 100 ML IV PRN (20:30)
[2025-03-24] MEDS: normal saline 1000ml 1,000 ML IV SCH (20:30)
[2025-03-24] MEDS ORDERED: magnesium sulf-water 2g/50mL 50 ML IV PRN (20:30)
[2025-03-24] MEDS ORDERED: ondansetron/PF 4mg/2ml inj IV PRN (20:30)
[2025-03-24] MEDS ORDERED: potassium Cl 20 mEq SR tablet PO PRN ×2 (20:30)
[2025-03-24] MEDS ORDERED: potassium Cl 40MEQ/1/2NS 520ml 520 ML IV PRN (20:30)
[2025-03-24 21:00] LABS: LEUKOCYTE ESTERASE ,URINE NEGATIVE (Neg); NITRITES, URINE NEGATIVE (Neg); OCCULT BLOOD,URINE NEGATIVE (Neg); UA COLLECTION TYPE CLN CATCH MIDSTREAM
--- NOTE | 2025-03-24 21:05 | HISTORY AND PHYSICAL-Residence ---
History & Physical Providers to CC Resident Creating Document: RONALD RILEY RES ~ History of Present Illness Reason for Admit\Complaint: Chest pain, Shortness of breath and alcohol withdrawal History of Present Illness This 59-year-old male presented to the ER with a chief concern of right-sided chest pain that started about three days back. Mentioned that he woke up in the middle of the night with right-sided chest pain about three days back. Took two doses of low-dose aspirin which did not help. Went back to sleep. Since then, the pain remained constant and gets worse with cough. He has chronic cough due to 40 year smoking history. Denies bringing up any phlegm. Also feels short of breath with exertion. Also complains of orthopnea and PND. Denies any palpitations. Stated that the pain is 8/10, stabbing kind of pain in the right chest which also radiates to upper back. Denies any radiation to arm or jaw. Stated that he has been having significant sweating and wakes up drenched in sweat. Also has chills. Denies any fever, abdominal pain, nausea or vomiting, diarrhea, dysuria, syncope, fall, dizziness or palpitations. Has tremors in his hands. States that he drinks 12 pack of beer every night and the last drink was last night. Has been smoking one pack of cigarettes for the last 40 years. Had alcohol withdrawal in the past but denies having any hallucinations or seizures in the past. Denies any visual or auditory hallucinations now. Denies taking any medications at home and does not use any inhalers Allergies: Coded Allergies: Penicillins (Verified Allergy, Severe, 09/03/23) Home Medications Home Medications Active Librium (Chlordiazepoxide Hcl) 25 Mg Capsule 25 Mg PO DIRECTED 4 Days Librium (Chlordiazepoxide Hcl) 25 Mg Capsule 1 Cap PO TID PRN 4 Days Xylocaine Viscous (Lidocaine HCl) 20 Ml Solution 5 Ml PO Q2H PRN SORE THROAT Past Medical History Past Medical History Hypertension, COPD, asthma Past Surgical History Surgical History Comment Denies having any surgical procedures Past Social History Social History Comment Has been smoking one pack of cigarettes for the last 40 years. Drinks 12 pack of beer every night for the last 40 years. Remote history of smoking weed in . Denied abusing any other recreational drugs. Lives with his girlfriend SUZETTE ROS Constitutional: No fever, chills, dizziness, weakness, weight gain or loss Eyes: No pain, erythema, discharge, blurring of vision ENT: No sore throat, epistaxis, tinnitus Cardiovascular: Right-sided chest pain present. No chest pressure, chest discomfort, palpitations, syncope, lower extremity edema, paroxysmal nocturnal dyspnea Respiratory: Shortness of breath and chronic cough present. No hemoptysis Gastrointestinal: Normal appetite. No nausea, vomiting, diarrhea, constipation, hematemesis, abdominal pain, bloating, melena or fresh blood Genitourinary: No frequency, urgency, nocturia, hematuria or dysuria Musculoskeletal: No arthralgias or myalgias Integumentary: No change in skin, hair, nails. No swelling, bruising, abrasions Neurologic: No headache, neck pain, numbness or tingling of the extremities, weakness Psychiatric: No delusions, depression, loss of interest in normal activity or change in sleep pattern, hallucinations, suicidal ideations Endocrine: No fatigue, weakness, polydipsia, polyuria, change in appetite, heat or cold intolerance, sweating, dry skin Hematological: No bleeding, petechiae, bruising Allergies: No asthma or urticaria Exam Vitals: Vital Signs Date Time Temp Pulse Resp B/P (MAP) Pulse Ox O2 Delivery O2 Flow Rate FiO2 03/24/25 17:35 92 Nasal Cannula* 2 28 03/24/25 17:33 112 22 161/91 (114) 03/24/25 11:29 97.5 General: Alert and oriented x4 HEENT: Normocephalic and atraumatic. Pupils equal round reactive to light and accommodation. Extraocular movements intact. Oral and nasal mucosa moist Neck: Trachea is in midline. No masses or JVD Chest: Bilateral normal breath sounds. No crackles, rhonchi or wheezes. Tenderness in the 7th and 8th ICS in the right midclavicular line Cardiovascular: Regular rhythm. Tachycardic. S1-S2 normal. No rubs or murmurs Abdomen: Soft, nontender nondistended. Bowel sounds present Extremities: No cyanosis, clubbing or edema Central Nervous System: No gross sensory or motor deficits . CN II to XII grossly intact. No cerebellar signs. Has tremors in bilateral hands even at rest and on extension Musculoskeletal: No spinal or paraspinal tenderness Skin: Warm and dry Diagnostic Data Last Recorded Lab Results: 03/25/25 0635 03/25/25 0615 Diagnostic Data: Laboratory Tests Test 03/24/25 11:45 D-Dimer 3.31 MG/L FEU (0-0.50) H D-Dimer Comment Advance Care Planning Advanced Care plannin - 30 Minutes Additional Plan Acute hypoxemic respiratory failure About 2-4 L oxygen mentation via nasal cannula Likely due to infectious bronchiolitis Denies using any oxygen at home No wheezing or rhonchi Chest x-ray shows hyperinflation with mild right basilar reticular opacity D-dimer was elevated and so chest CTA which ruled out PE Chest CTA showed infectious bronchiolitis with the areas of endobronchial impaction and partial collapse and/or consolidation of the periphery of the right lung base No elevated WBC. Received Rocephin 1 g IV and azithromycin 500 mg IV in the ER and also DuoNeb once Continue Rocephin 1 g IV daily and azithromycin 500 mg IV-two more doses Continue albuterol and DuoNeb q.4h p.r.n. Started prednisone 40 mg p.o. daily Lactic acid came down to normal Influenza a and B, COVID negative Moderate to severe alcohol withdrawal CIWA 15 Has Tremors and sweating. No hallucinations or seizures Moderate alcohol withdrawal protocol Pharmacy, IV Ativan only available for seizures so, discontinued by pharmacy Continue p.o. Ativan q.2h p.r.n. for anxiety/agitation/phenobarbital 130 mg IV q.8h p.r.n. for anxiety/agitation Continue thiamine 200 mg IV t.i.d. for three days and folic acid 1 mg IV daily for three days and then thiamine 100 mg p.o. daily and folic acid 1 mg p.o. daily Continue multivitamin Continue Zofran 4 mg IV q.6h p.r.n. for nausea/vomiting Continue atenolol 50 mg p.o. daily as per withdrawal protocol No elevated serum ethanol level U tox negative Right-sided chest pain Likely musculoskeletal Denies any trauma Tenderness in the 7th ICS in the right midclavicular line EKG shows sinus tachycardia with no significant ST or T-wave changes Troponins negative Continue Tylenol 650 mg p.o. q.6h p.r.n. for pain Mild hyponatremia and hypochloremia Received 1 L normal saline bolus in the ER Does not look fluid overloaded Continue normal saline at 100 cc/hour Chronic COPD No inhalers at home No acute exacerbation-no wheezing or rhonchi Requires inhalers at the time of discharge DVT prophylaxis: Lovenox 40 mg subcutaneous daily Diet: Regular diet Ronald Riley MD Internal Medicine Resident, PGY 3 Date of Service: Mar 24, 2025 Billing Provider: ALEXIS FRAIRE MD Addendum 59 yo admitted with chest pain worse with cough and some tenderness. He also has also new O2 requirement. Plan: thiamine and folic acid Pain control with tylenol albuterol and ipratropium Q6hr steroids empiric abx CCT 50 min using HIPPA compliant A/V technology RONALD RILEY RES Mar 24, 2025 21:05 ALEXIS FRAIRE MD Mar 25, 2025 21:12
[2025-03-24 21:34] LABS: URINE AMPHETAMINE SCREEN NEGATIVE (Neg); URINE BARBITUATE SCREEN NEGATIVE (Neg); URINE BENZODIAZEPINES SCREEN NEGATIVE (Neg); URINE CANNABINOID SCREEN NEGATIVE (Neg); URINE COCAINE SCREEN NEGATIVE (Neg); URINE METHADONE SCREEN NEGATIVE (Neg); URINE OPIATE SCREEN NEGATIVE (Neg); URINE PHENCYCLIDINE SCREEN NEGATIVE (Neg)
[2025-03-24 21:36] LABS: SQUAMOUS EPITHELIAL CELL,UR NONE SEEN /LPF (FEW)
[2025-03-24 21:38] LABS: APTT 27 SECONDS (22-32); INR 1.0 INR
[2025-03-24 21:42] LABS: CREATININE 0.60 MG/DL (0.60-1.10); PHOSPHORUS 2.4 MG/DL (2.3-4.5); TOTAL CARBON DIOXIDE 31.1 MMOL/L (24-32); eCRCL 108 ML/MIN; eGFR > 90 ML/MIN
[2025-03-24 21:55] LABS: ETHANOL < 10 MG/DL (<10)
[2025-03-24] MEDS ORDERED: albuterol 2.5 MG/3 ML nebule NEB PRN (21:55)
[2025-03-24 22:35] VITALS: BP 148/84; PULSE 92; RESP 19; TEMP 99.1; O2SAT 94
[2025-03-24 22:50] VITALS: RESP 22; O2SAT 15
[2025-03-24] MEDS: thiamine 100mg/ml 2ml inj. ONE (23:56)
[2025-03-24] MEDS: thiamine 100mg/ml 2ml inj. IV SCH (23:58)
[2025-03-25] VITALS (10 sets, daily range): BP systolic 138–154; BP diastolic 85–89; PULSE 88–104; RESP 18–25; TEMP 97.5–99.7; O2SAT 92–98
[2025-03-25 07:17] LABS: MEAN PLATELET VOLUME 8.1 FL (7.4-10.4); RED CELL DISTRIBUTION WIDTH 13.1 % (11.5-14.5)
[2025-03-25 07:20] LABS: APTT 28 SECONDS (22-32); INR 1.0 INR
[2025-03-25 07:25] LABS: CHOL/HDL RATIO 2.5 (0.00-4.99); CREATININE 0.45 MG/DL (0.60-1.10); LDL CHOLESTEROL 73 MG/DL (50-100); PHOSPHORUS 2.7 MG/DL (2.3-4.5); TOTAL CARBON DIOXIDE 31.8 MMOL/L (24-32); eCRCL 144 ML/MIN; eGFR > 90 ML/MIN
[2025-03-25] MEDS: K and/or MAG REPLACEMENT MC SCH (08:00)
[2025-03-25] MEDS: multivitamins, therapeutics tablet PO SCH (10:17)
[2025-03-25] MEDS: folic acid 1mg/0.2ml inj IV SCH (10:17)
--- NOTE | 2025-03-25 19:26 | PROGRESS NOTE ---
Daily Progress Note Providers to CC ~ Antibiotic Timeout Antibiotic Ordered?: Yes Subjective Patient was seen in his room he was saturating very well on 1 L of oxygen. As per patient he has pain over right upper abdomen. He did admitted he is drinking heavily. Objective Vital Signs Date Time Temp Pulse Resp B/P (MAP) Pulse Ox O2 Delivery O2 Flow Rate FiO2 03/25/25 17:02 17 03/25/25 15:00 97.5 104 154/89 (110) 98 Nasal Cannula 1.0 03/25/25 07:56 24 Result Diagram: 03/25/25 0635 03/25/25 0615 General-patient not in any acute distress, alert awake , chronically ill- appearing HEENT-atraumatic normocephalic, neck supple without elevated JVD, no thyromegaly or carotid bruit. No lymphadenopathy bilaterally. Eyes-no icterus or pallor seen in eyes Chest-clear to auscultation bilaterally, breathing nonlabored no tachypnea, no wheezing, no crepitation, no crackles. Heart-S1-S2 normal, regular heart rate no murmur Abdomen bowel sounds positive on auscultation, soft nondistended nontender no guarding, no rigidity, mild discomfort on palpation over right upper abdomen Skin no active skin rash Neurology-grossly intact, nonfocal alert awake oriented Extremity- no pedal edema able to move all 4 extremities Psychiatry - patient is not confused or agitated cooperated during physical examination Coagulation Studies Laboratory Tests Test 03/24/25 11:45 03/25/25 06:15 D-Dimer 3.31 MG/L FEU (0-0.50) H D-Dimer Comment Prothrombin Time 10.3 SECONDS (9.0-12.0) INR International Normalized Ratio 1.0 INR Activated Partial Thromboplast Time 28 SECONDS (22-32) Coagulation Comments Problem\Assessment\Plan Acute hypoxemic respiratory failure, Infectious bronchiolitis About 2-4 L oxygen mentation via nasal cannula Chest x-ray shows hyperinflation with mild right basilar reticular opacity D-dimer was elevated and so chest CTA which ruled out PE Chest CTA showed infectious bronchiolitis with the areas of endobronchial impaction and partial collapse and/or consolidation of the periphery of the right lung base No elevated WBC. Received Rocephin 1 g IV and azithromycin 500 mg IV in the ER and also DuoNeb once Continue Rocephin 1 g IV daily and azithromycin 500 mg IV-two more doses Continue albuterol and DuoNeb q.4h p.r.n. Started prednisone 40 mg p.o. daily Lactic acid came down to normal Influenza a and B, COVID negative Moderate to severe alcohol withdrawal CIWA 15 Moderate alcohol withdrawal protocol Continue p.o. Ativan q.2h p.r.n. for anxiety/agitation/phenobarbital 130 mg IV q.8h p.r.n. for anxiety/agitation Continue thiamine 200 mg IV t.i.d. for three days and folic acid 1 mg IV daily for three days and then thiamine 100 mg p.o. daily and folic acid 1 mg p.o. daily Continue multivitamin Continue Zofran 4 mg IV q.6h p.r.n. for nausea/vomiting Continue atenolol 50 mg p.o. daily as per withdrawal protocol No elevated serum ethanol level U tox negative Crop Specialist consultation ordered for alcohol abuse Right-sided upper abdominal/ chest pain Likely musculoskeletal Denies any trauma Tenderness in the 7th ICS in the right midclavicular line EKG shows sinus tachycardia with no significant ST or T-wave changes Troponins negative Continue Tylenol 650 mg p.o. q.6h p.r.n. for pain Mild hyponatremia and hypochloremia Received 1 L normal saline bolus in the ER Does not look fluid overloaded Continue normal saline at 100 cc/hour Chronic COPD No inhalers at home No acute exacerbation-no wheezing or rhonchi Requires inhalers at the time of discharge DVT prophylaxis: Lovenox 40 mg subcutaneous daily Diet: Regular diet Patient's current condition is guarded we will continue to follow patient in AM . Date of Service: Mar 25, 2025 Billing Provider: NAWAF BRENNAN MD Common Visit Codes: [id number] INP/OBS CARE(HIGH) NAWAF BRENNAN MD Mar 25, 2025 19:26
[2025-03-25] MEDS: enoxaparin 40mg/0.4ml syringe SQ SCH (20:06)
[2025-03-25] MEDS: CefTRIAXone/D5W-Rocephin 1gm 50 ML IV SCH (20:07)
[2025-03-25] MEDS: azithromycin/NS 500mg/250ml 250 ML IV SCH (21:49)
[2025-03-26] VITALS (9 sets, daily range): BP systolic 130–159; BP diastolic 80–94; PULSE 78–89; RESP 17–27; TEMP 97.2–98.9; O2SAT 91–98
[2025-03-26] MEDS ORDERED: CHLO25CA10 PO (00:52)
[2025-03-26 06:34] LABS: MEAN PLATELET VOLUME 7.7 FL (7.4-10.4); RED CELL DISTRIBUTION WIDTH 12.7 % (11.5-14.5)
[2025-03-26 06:44] LABS: APTT 28 SECONDS (22-32); INR 1.0 INR
[2025-03-26 06:50] LABS: CREATININE 0.47 MG/DL (0.60-1.10); PHOSPHORUS 3.0 MG/DL (2.3-4.5); TOTAL CARBON DIOXIDE 33.1 MMOL/L (24-32); eCRCL 138 ML/MIN; eGFR > 90 ML/MIN
[2025-03-26] MEDS: nicotine 14mg patch - 24hr TD SCH (08:14)
--- NOTE | 2025-03-26 18:05 | PROGRESS NOTE ---
Daily Progress Note Providers to CC ~ Antibiotic Timeout Antibiotic Ordered?: No Subjective Patient was seen in his room he is feeling better than yesterday. Detailed counseling done regarding risk and consequences of alcohol abuse in visit . Patient was also seen by school social worker for alcohol abuse today. Objective Vital Signs Date Time Temp Pulse Resp B/P (MAP) Pulse Ox O2 Delivery O2 Flow Rate FiO2 03/26/25 15:00 97.3 84 22 130/80 (97) 95 Room Air 03/26/25 11:44 0 21 Result Diagram: 03/26/2560003/26/25600 General-patient not in any acute distress, alert awake , chronically ill- appearing HEENT-atraumatic normocephalic, neck supple without elevated JVD, no thyromegaly or carotid bruit. No lymphadenopathy bilaterally. Eyes-no icterus or pallor seen in eyes Chest-clear to auscultation over left lung mild decrease in breath sounds over right lower lung, breathing nonlabored no tachypnea, no wheezing, no crepitation, no crackles. Heart-S1-S2 normal, regular heart rate no murmur Abdomen bowel sounds positive on auscultation, soft nondistended nontender no guarding, no rigidity, mild discomfort on palpation over right upper abdomen Skin no active skin rash Neurology-grossly intact, nonfocal alert awake oriented Extremity- no pedal edema able to move all 4 extremities Psychiatry - patient is not confused or agitated cooperated during physical examination Coagulation Studies Laboratory Tests Test 03/24/25 11:45 03/26/25 06:01 D-Dimer 3.31 MG/L FEU (0-0.50) H D-Dimer Comment Prothrombin Time 9.8 SECONDS (9.0-12.0) INR International Normalized Ratio 1.0 INR Activated Partial Thromboplast Time 28 SECONDS (22-32) Coagulation Comments Problem\Assessment\Plan Acute hypoxemic respiratory failure, Infectious bronchiolitis About 2-4 L oxygen mentation via nasal cannula Chest x-ray shows hyperinflation with mild right basilar reticular opacity D-dimer was elevated and so chest CTA which ruled out PE Chest CTA showed infectious bronchiolitis with the areas of endobronchial impaction and partial collapse and/or consolidation of the periphery of the right lung base No elevated WBC. Received Rocephin 1 g IV and azithromycin 500 mg IV in the ER and also DuoNeb once Continue Rocephin 1 g IV daily and azithromycin 500 mg IV-two more doses Continue albuterol and DuoNeb q.4h p.r.n. Started prednisone 40 mg p.o. daily Lactic acid came down to normal Influenza a and B, COVID negative Moderate to severe alcohol withdrawal CIWA 15 Moderate alcohol withdrawal protocol Continue p.o. Ativan q.2h p.r.n. for anxiety/agitation/phenobarbital 130 mg IV q.8h p.r.n. for anxiety/agitation Continue thiamine 200 mg IV t.i.d. for three days and folic acid 1 mg IV daily for three days and then thiamine 100 mg p.o. daily and folic acid 1 mg p.o. daily Continue multivitamin Continue Zofran 4 mg IV q.6h p.r.n. for nausea/vomiting Continue atenolol 50 mg p.o. daily as per withdrawal protocol No elevated serum ethanol level U tox negative [employer] Professor consultated for alcohol abuse Mild hyponatremia and hypochloremia -resolved Received 1 L normal saline bolus in the ER Continue normal saline at 50 cc/hour Chronic COPD No inhalers at home No acute exacerbation-no wheezing or rhonchi Requires inhalers at the time of discharge DVT prophylaxis: Lovenox 40 mg subcutaneous daily Diet: Regular diet Patient's current condition is guarded we will continue to follow patient in AM . Date of Service: Mar 26, 2025 Billing Provider: NAWAF BRENNAN MD Common Visit Codes: 34430-[id number] INP/OBS CARE(HIGH) NAWAF BRENNAN MD Mar 26, 2025 18:05
[2025-03-27 02:00] VITALS: BP 157/87; PULSE 96; RESP 22; TEMP 97.8; O2SAT 98
[2025-03-27 06:00] VITALS: BP 141/85; PULSE 92; RESP 22; TEMP 98.1; O2SAT 92
[2025-03-27 07:43] LABS: MEAN PLATELET VOLUME 7.0 FL (7.4-10.4); RED CELL DISTRIBUTION WIDTH 12.7 % (11.5-14.5)
[2025-03-27 07:46] LABS: APTT 26 SECONDS (22-32); INR 1.0 INR
[2025-03-27 07:50] LABS: CREATININE 0.53 MG/DL (0.60-1.10); PHOSPHORUS 3.5 MG/DL (2.3-4.5); TOTAL CARBON DIOXIDE 32.1 MMOL/L (24-32); eCRCL 122 ML/MIN; eGFR > 90 ML/MIN
[2025-03-27 08:00] VITALS: RESP 22; O2SAT 93
[2025-03-27 08:12] LABS: EOSINOPHILS % (MANUAL) 2.0 % (0-6); LYMPHOCYTES % (MANUAL) 27.0 % (21-51); MONOCYTES % (MANUAL) 14.0 % (2-12); NEUTROPHILS % (MANUAL) 57.0 % (42-75); PLATELET ESTIMATE NORMAL
[2025-03-27] MEDS: ipratropium/albuterol 3ml nebule NEB PRN (08:41)
[2025-03-27 08:45] VITALS: PULSE 55; RESP 18; O2SAT 91
[2025-03-27 08:50] VITALS: PULSE 92; RESP 20
[2025-03-27] MEDS ORDERED: NICO-631 TD (10:39)
[2025-03-27] MEDS ORDERED: thiamine tablet PO (10:39)
[2025-03-27] MEDS ORDERED: MULT-25 PO (10:39)
[2025-03-27] MEDS ORDERED: LEVO-65 PO (10:39)
[2025-03-27] MEDS ORDERED: ATEN50TA41 PO (10:39)
[2025-03-27] MEDS ORDERED: PRED20TA PO (10:39)
[2025-03-27] MEDS ORDERED: FOLI1TAB27 PO (10:39)
[2025-03-27] MEDS ORDERED: NALT50TA5 PO (10:40)
[2025-03-27 11:00] VITALS: BP 113/74; PULSE 85; RESP 20; TEMP 97.5; O2SAT 93
--- NOTE | 2025-03-27 20:23 | DISCHARGE SUMMARY ---
Discharge Summary Providers to CC ~ Discharge Summary Admission Diagnosis: AHRF and alcohol withdrawal Hospital Course DATE OF ADMISSION: March 24, 2025 DATE OF DISCHARGE: March 27, 2025 CBC testing done on March 27, 2025 WBC 5.5 hemoglobin 15.2 hematocrit 43.9 sed rate 37 platelet count 238.. Serum chemistry done on March 27, 2025 sodium 136 potassium 4.0 creatinine 0.53 GFR 90 normal liver enzymes. Hemoglobin A1c 5.4, procalcitonin 0.05, blood culture showed no growth after three days CTA CHEST PE IMPRESSION: 1. No CTA evidence of an acute pulmonary embolism. 2. Infectious bronchiolitis with areas of endobronchial impaction and partial collapse and/or consolidation in the periphery of the right lung base. CHEST,SINGLE VIEWIMPRESSION: No acute disease. Discharge Diagnosis\\Comment: Acute hypoxemic respiratory failure, Infectious bronchiolitis, Moderate to severe alcohol withdrawal Mild hyponatremia and hypochloremia -resolved Chronic COPD Operations\\Procedures: None Consultants: None Complications: None Condition on DC: Stable New Medications: Levofloxacin (Levofloxacin) 500 Mg Tablet 500 MG PO DAILY for 5 Days, #5 TAB Naltrexone Hcl (Naltrexone Hcl) 50 Mg Tablet 1 TAB PO DAILY for 30 Days, #30 TAB 0 Refills Atenolol (Atenolol) 50 Mg Tablet 50 MG PO DAILY for 30 Days, #30 TAB Folic Acid* (Folic Acid*) Y Tab 1 MG PO DAILY for 30 Days, #30 TAB Multivitamin with Folic Acid (Thera Tablet) 400 Mcg Tablet 1 EACH PO Q24H for 30 Days, #30 TAB Nicotine 14 MG Patch* (Habitrol 14 MG Patch*) 1 Each Patch.td24 1 PATCH TD DAILY for 30 Days, #30 PATCH Prednisone* (Prednisone*) 20 Mg Tablet 20 MG PO DAILY for 5 Days, #5 TAB [thiamine tablet] () 100 MG TABLET 100 MG PO DAILY for 30 Days, #30 Discontinued Medications: Chlordiazepoxide Hcl (Librium) 25 Mg Capsule 1 CAP PO HSPRN PRN for anxiety for 1 Day, #2 CAP 0 Refills Discharge Summary: As per admitting provider's history and physical note" This 59-year-old male presented to the ER with a chief concern of right-sided chest pain that started about three days back. Mentioned that he woke up in the middle of the night with right-sided chest pain about three days back. Took two doses of low-dose aspirin which did not help. Went back to sleep. Since then, the pain remained constant and gets worse with cough. He has chronic cough due to 40 year smoking history. Denies bringing up any phlegm. Also feels short of breath with exertion. Also complains of orthopnea and PND. Denies any palpitations. Stated that the pain is 8/10, stabbing kind of pain in the right chest which also radiates to upper back. Denies any radiation to arm or jaw. Stated that he has been having significant sweating and wakes up drenched in sweat. Also has chills. Denies any fever, abdominal pain, nausea or vomiting, diarrhea, dysuria, syncope, fall, dizziness or palpitations. Has tremors in his hands. States that he drinks 12 pack of beer every night and the last drink was last night. Has been smoking one pack of cigarettes for the last 40 years. Had alcohol withdrawal in the past but denies having any hallucinations or seizures in the past. Denies any visual or auditory hallucinations now. Denies taking any medications at home and does not use any inhalers" During hospitalization patient was treated for Acute hypoxemic respiratory failure, Infectious bronchiolitis About 2-4 L oxygen mentation via nasal cannula Chest x-ray shows hyperinflation with mild right basilar reticular opacity D-dimer was elevated and so chest CTA which ruled out PE Chest CTA showed infectious bronchiolitis with the areas of endobronchial impaction and partial collapse and/or consolidation of the periphery of the right lung base No elevated WBC. Received Rocephin 1 g IV and azithromycin 500 mg IV in the ER and also DuoNeb once Continue Rocephin 1 g IV daily and azithromycin 500 mg IV-two more doses Continue albuterol and DuoNeb q.4h p.r.n. Started prednisone 40 mg p.o. daily Lactic acid came down to normal Influenza a and B, COVID negative Moderate to severe alcohol withdrawal CIWA 15 Moderate alcohol withdrawal protocol Continue p.o. Ativan q.2h p.r.n. for anxiety/agitation/phenobarbital 130 mg IV q.8h p.r.n. for anxiety/agitation Continue thiamine 200 mg IV t.i.d. for three days and folic acid 1 mg IV daily for three days and then thiamine 100 mg p.o. daily and folic acid 1 mg p.o. daily Continue multivitamin Continue Zofran 4 mg IV q.6h p.r.n. for nausea/vomiting Continue atenolol 50 mg p.o. daily as per withdrawal protocol No elevated serum ethanol level U tox negative [employer] Supervisor consultated for alcohol abuse Mild hyponatremia and hypochloremia -resolved Received 1 L normal saline bolus in the ER Continue normal saline at 50 cc/hour Chronic COPD No inhalers at home No acute exacerbation-no wheezing or rhonchi Requires inhalers at the time of discharge DVT prophylaxis: Lovenox 40 mg subcutaneous daily Diet: Regular diet Patient is feeling better he has been afebrile and getting discharged home in stable condition. Patient is seen and examined on the day of discharge. All labs, diagnostic workup and discharge plan discussed with patient and family members in detail before her discharge. All questions and queries answered to the best of my professional medical knowledge. I heard patient's concerns and address appropriately. Patient was cleared by Physical therapy team for home discharge . manager social work involved in patient's discharge plan. Discharge instructions provided to the patient. Follow-up with PCP , [facility] program in outpatient setting after hospital discharge in 1-2 weeks. Strongly advised to stop alcohol and risks explained in detail. Please provide fall precautions documents. Activity as tolerated. General-patient not in any acute distress, alert awake , chronically ill-ap pearing HEENT-atraumatic normocephalic, neck supple without elevated JVD, no thyromegaly or carotid bruit. No lymphadenopathy bilaterally. Eyes-no icterus or pallor seen in eyes Chest-clear to auscultation over left lung mild decrease in breath sounds over right lower lung, breathing nonlabored no tachypnea, no wheezing, no crepitation, no crackles. Heart-S1-S2 normal, regular heart rate no murmur Abdomen bowel sounds positive on auscultation, soft nondistended nontender no guarding, no rigidity, mild discomfort on palpation over right upper abdomen Skin no active skin rash Neurology-grossly intact, nonfocal alert awake oriented Extremity- no pedal edema able to move all 4 extremities Psychiatry - patient is not confused or agitated cooperated during physical examination *Problems/Diagnosis: (1) Alcoholic intoxication Status: Acute (2) Pneumonia Status: Acute Total Time Spent on D/C: > 30 Minutes Date of Service: Mar 27, 2025 Billing Provider: NAWAF BRENNAN MD Common Visit Codes: 14379-WYZ/OBS DISCH DAY >30min Problem Qualifiers (1) Pneumonia: Qualified Codes: J18.9 - Pneumonia, unspecified organism NAWAF BRENNAN MD Mar 27, 2025 20:23
== END 2025-03-27 15:50 | disposition home or self-care (01) | DRG 138 ==
LOC: ER 11:21 → ED HOLD 20:25 → EDBEDREQ 21:50 → PCU 3S 22:34
PROVIDERS: ADMIT Internal Medicine; ATTEND Internal Medicine
PROC: B32T1ZZ Computerized Tomography (CT Scan) of Left Pulmonary Artery using Low Osmolar Contrast (ICD-10-PCS; principal; 2025-03-24)
PROC: B3201ZZ Computerized Tomography (CT Scan) of Thoracic Aorta using Low Osmolar Contrast (ICD-10-PCS; 2025-03-24)
PROC: B32S1ZZ Computerized Tomography (CT Scan) of Right Pulmonary Artery using Low Osmolar Contrast (ICD-10-PCS; 2025-03-24)
DX: J21.9 Acute bronchiolitis, unspecified (principal); J96.01 Acute respiratory failure with hypoxia; E87.1 Hypo-osmolality and hyponatremia; J44.0 Chronic obstructive pulmonary disease with (acute) lower respiratory infection; Z20.822 Contact with and (suspected) exposure to COVID-19; F10.139 Alcohol abuse with withdrawal, unspecified; I10 Essential (primary) hypertension; E87.8 Other disorders of electrolyte and fluid balance, not elsewhere classified; F17.210 Nicotine dependence, cigarettes, uncomplicated; Z88.0 Allergy status to penicillin
CPT/HCPCS: 36415; 71045; 71275; 80048; 80053; 80061; 80305; 80320; 81001; 82150; 83036; 83605; 83690; 83735; 83880; 84100; 84145; 84484; 85007; 85025; 85379; 85610; 85651; 85730; 87040; 87081; 87804; 87811; 93005; 94640; 94760; 96365; 96367; 97116; 97161; 97530; 99285; A4615; A6258; A7015; G0378; J0456; J0696; J1650; J3411; J3490; J7030; J7512; Q9967

== ENCOUNTER 2025-05-07 16:13 | Emergency (ER) | payer MEDICAID ==
[~2025-05-07] VITALS: Ht 182.9 cm; Wt 57.7 kg
[~2025-05-07 16:13] MED LIST changes: +ATEN50TA41 PO; -CHLO25CA10 PO; +FOLI1TAB27 PO; -LIDO20SO16 PO; +MULT-25 PO; +NALT50TA5 PO; +NICO-631 TD; +PRED20TA PO; +thiamine tablet PO
--- NOTE | 2025-05-07 16:38 | ELECTROCARDIOGRAPH REPORT ---
[facility] Test Date: 2025-05-07 Test Time: 16:29:42 Pat Name: FAREED BABCOCK Department: EMERGENCY ROOM Patient ID: [id number] Room: Gender: M Protocol Officer: PM : 1965 Requested By: CHARO MUIR Order Number: [id number] Reading MD: Dr. ZAHIDA Alvarez Measurements Intervals Clear Rate: 103 P: 82 AZ: 146 QRS: 79 QRSD: 91 T: 74 QT: 340 QTc: 445 Interpretive Statements Sinus tachycardia Left atrial enlargement Minimal ST depression, inferior leads Electronically Signed On 05-08-2025 12:59:[address] ZAHIDA Alvarez Please click the below link to view image of tracing.
[2025-05-07 16:41] VITALS: TEMP 97.8
[2025-05-07 16:55] LABS: MEAN PLATELET VOLUME 7.5 FL (7.4-10.4); RED CELL DISTRIBUTION WIDTH 14.2 % (11.5-14.5)
--- NOTE | 2025-05-07 17:08 | RADIOLOGY REPORT ---
CHEST RADIOGRAPH Indication: CP Technique: Single frontal view of the chest was obtained COMPARISON: DI CHEST,SINGLE VIEW on DOS: 03/24/25 FINDINGS: Lungs and pleural spaces are clear. Cardiac silhouette and violet are within normal limits. Bones and soft tissues demonstrate no significant abnormality. IMPRESSION: No acute disease.
[2025-05-07 17:40] LABS: CREATININE 0.42 MG/DL (0.60-1.10); PRO BRAIN NATRIURETIC PEPTIDE 56 PG/ML (0-125); TOTAL CARBON DIOXIDE 28.4 MMOL/L (24-32); eCRCL 155 ML/MIN; eGFR > 90 ML/MIN
[2025-05-07 18:47] VITALS: BP 152/69; PULSE 95; RESP 17; O2SAT 95
[2025-05-07] MEDS ORDERED: ALBU18HF2 INH (19:07)
[2025-05-07] MEDS ORDERED: AZIT-164 PO (19:07)
[2025-05-07] MEDS ORDERED: PRED20TA PO (19:07)
--- NOTE | 2025-05-07 19:09 | Physician Documentation ---
History of Present Illness ~ Chief Complaint: Shortness of Breath Stated Complaint: CHEST PAIN Time Seen by MD: 19:00 HPI Shortness of breath Medication Reconciliation Allergies: Coded Allergies: Penicillins (Verified Allergy, Severe, 05/07/25) Scheduled Albuterol Sulfate (Ventolin Hfa), 2 PUFFS INH Q4HPRN Atenolol (Atenolol), 50 MG PO DAILY Azithromycin (Zithromax), 1 TAB PO DAILY Folic Acid* (Folic Acid*), 1 MG PO DAILY Multivitamin with Folic Acid (Thera Tablet), 1 EACH PO Q24H Naltrexone Hcl (Naltrexone Hcl), 1 TAB PO DAILY Nicotine 14 MG Patch* (Habitrol 14 MG Patch*), 1 PATCH TD DAILY Prednisone* (Prednisone*), 20 MG PO DAILY Prednisone* (Prednisone*), 3 TAB PO DAILY [thiamine tablet], 100 MG PO DAILY Past Medical History Past Medical History: No Pertinent History Alcohol Use: Heavy Review of Systems All Other Systems at this time: Reviewed and Negative Constitutional: Denies: chills, fever Respiratory: Reports: see HPI Psychiatric: Reports: other (Intoxicated pressured speech) Physical Exam Vital Signs: RN Vital Signs have been reviewed: Yes, Temperature: 97.8, Source: Oral, Heart Rate: 95, Respiratory Rate: 17, BP: 152/69, Pulse Oximetry: 95, Weight: 57.700 Oxygen Flow Rate: 0 General Appearance: alert, WD/WN, other (Rapid speech) General Appearance Intoxicated mildly EENT: normal ENT inspection Respiratory: decreased breath sounds (Decreased forced expiratory volume without rales, rhonchi or stridor) Cardiovascular: normal peripheral pulses Gastrointestinal: non-tender Extremities: normal inspection, no calf tenderness Skin: normal color (Medicated) Psychiatric: appropriate, other Lymphatic: no adenopathy Progress Results/Orders Results/Orders Completed Orders - JAZMINE PLASCENCIA Prednisone Tablet (Prednisone Tablet) (05/07/25 19:10) Azithromycin Tablet (Zithromax Tablet) (05/07/25 19:10) Vital Signs 05/07/25 05/07/25 16:41 18:47 Temp 97.8 Pulse 98 95 Resp 18 17 B/P (MAP) 131/79 152/69 (96) Pulse Ox 96 95 O2 Flow Rate 0 Laboratory Tests Test 05/07/25 16:31 05/07/25 18:43 05/07/25 19:44 White Blood Count 4.5 Red Blood Count 4.68 L Hemoglobin 16.7 Hematocrit 48.8 Mean Corpuscular Volume 104.3 H Mean Corpuscular Hemoglobin 35.6 H Mean Corpuscular Hemoglobin Concent 34.1 Red Cell Distribution Width 14.2 Platelet Count 157 Mean Platelet Volume 7.5 Neutrophils (%) (Auto) 46.0 Lymphocytes (%) (Auto) 36.2 Monocytes (%) (Auto) 13.8 H Eosinophils (%) (Auto) 3.0 Basophils (%) (Auto) 1.0 Neutrophils # (Auto) 2.1 Lymphocytes # (Auto) 1.6 Monocytes # (Auto) 0.6 Eosinophils # (Auto) 0.1 Basophils # (Auto) 0.0 CBC Comment Sodium Level 137 Potassium Level 4.0 Chloride Level 102 Carbon Dioxide Level 28.4 Anion Gap 7 L Blood Urea Nitrogen 2 L Creatinine 0.42 L Estimated GFR/1.73 m2 > 90 BUN/Creatinine Ratio 4.8 L Glucose Level 88 Calcium Level 8.2 L Troponin I High Sensitivity 10 10 10 Pro-B-Type Natriuretic Peptide 56 Albumin 3.8 Chemistry Comments Troponin I High Sens Percent Delta 0 0 Troponin I Hi Sens Absolute Change 0 0 Medical Decision Making Additional information obtaine: N/A Findings 59-year-old male presents to the emergency department with complaint of mild shortness of breath. Recently seen in and evaluated and discharged from the hospital for pneumonia. He has been taking his medications yet continues to smoke and drinks excessively. There was no obvious emmanuel shortness of breath or hypoxia upon presentation to the emergency department. He is without complaint of chest pain. Patient was greeted in triage and medical screening examination and labs and EKG and chest x-ray ordered. In review of his chest x-ray there has been complete resolution of his prior pneumonia, EKGs reassuring in his labs were all reassuring for no ALFREDO, serial negative troponins and no leukocytosis an d normal electrolytes. Revisited the patient in triage and expressed the patient the need to begin the prednisone burst along with albuterol inhaler two puffs every 4-6 hours and I will be covering him with antibiotic azithromycin due to his comorbidities of alcoholism and persistent smoking. Heart Score: 2 Differential Dx:Considerations: Include: anxiety, asthma, bronchitis, cardiogenic shock, CHF, COPD, dysrhythmia, hypertension, accelerated, hypertension, essential, hypertension, malignant, hyperventilation, hyponatremia, myocardial infarction, panic attack, pneumonia, pneumonitis, pne umothorax, PSVT, pulmonary embolism, respiratory distress, respiratory failure, sinusitis, upper resp. infection, other Departure Disposition: HOME / SELF CARE / HOMELESS Impression: Primary Impression: Chronic obstructive pulmonary disease Qualified Codes: J44.9 - Chronic obstructive pulmonary disease, unspecified Condition: Improved Discharge Instructions: Chronic Obstructive Pulmonary Disease Additional Instructions: Please begin medications as directed. Please follow up with the primary care physician and return to the emergency department in the interim if symptoms worsen. Your chest x-ray imaging is reassuring for no pneumonia at this time. You received 1st dose antibiotic and prednisone in the emergency department tonight. Please utilize your albuterol inhaler two puffs every 2-4 hours. Thank you for visiting emergency department of [facility]. Do your best to continue to decrease your smoking. Referrals: NO PRIMARY CARE PROVIDER (PCP) Prescriptions Albuterol Sulfate (Ventolin Hfa) 90 Mcg Hfa.aer.ad 2 PUFFS INH Q4HPRN, #1 INHALER Prov: JAZMINE PLASCENCIA 05/07/25 Azithromycin (Zithromax) 250 Mg Tablet 1 TAB PO DAILY, #6 TAB z-pack per packaging insert Prov: JAZMINE PLASCENCIA 05/07/25 Prednisone* (Prednisone*) 20 Mg Tablet 3 TAB PO DAILY, #15 TAB Prov: JAZMINE PLASCENCIA 05/07/25 Education Educated: Patient Educated regarding: diagnosis, treatment, prognosis, need for follow up Signature Scribe Signature: . Attestation: . JAZMINE PLASCENCIA May 07, 2025 19:09
== END 2025-05-07 20:26 | disposition home or self-care (01) ==
LOC: ER 16:14
DX: J44.9 Chronic obstructive pulmonary disease, unspecified (principal); Z88.0 Allergy status to penicillin; Z88.8 Allergy status to other drugs, medicaments and biological substances
CPT/HCPCS: 36415; 71045; 80048; 83880; 84484; 85025; 93005; 99285; J7512